=== PATIENT | female | born 1960 | race Caucasian/White ===

== ENCOUNTER 2017-04-29 23:54 | Emergency (ER) | payer BC ==
[~2017-04-29] VITALS: Ht 152.4 cm; Wt 68.0 kg
[~2017-04-29 23:54] MED LIST: CIPROFLOXACIN500 M1 PO; PYRIDIUM200 MG PO; SYNTHROID25 MCG PO
[2017-04-30] MEDS ORDERED: HYDROCODONE-AP1 EAC6 PO (02:10)
[2017-04-30 02:34] VITALS: BP 155/99
[2017-05-04] MEDS ORDERED: ALEVE220 MG PO (18:55)
[2017-05-04] MEDS ORDERED: PERCOCET PO (18:55)
== END 2017-04-30 02:38 | disposition home or self-care (01) ==
LOC: M.ERS 23:54
DX: S52.592A Other fractures of lower end of left radius, initial encounter for closed fracture (principal); E03.9 Hypothyroidism, unspecified; Z88.1 Allergy status to other antibiotic agents; W00.0XXA Fall on same level due to ice and snow, initial encounter; Y93.89 Activity, other specified; Y92.89 Other specified places as the place of occurrence of the external cause; Y99.8 Other external cause status

== ENCOUNTER → 2017-05-05 | Day surgery (SDC) | payer BC ==
[~2017-05-05] MED LIST changes: +ALEVE220 MG PO; +HYDROCODONE-AP1 EAC6 PO; +PERCOCET PO
[2017-05-05 13:09] LABS: HEMATOCRIT 36.2 % (37.0-47.0); HEMOGLOBIN 12.4 gm/dL (12.0-15.0); MCH 29.5 pg (26.0-34.0); MCHC 34.3 g/dL (28.0-37.0); MCV 86.1 fL (80.0-100.0); RBC 4.2 mil/uL (4.20-5.00); WBC 6.7 thou/uL (4.0-11.0)
--- NOTE | 2017-05-24 10:57 | OP ---
[address] [address] OPERATIVE REPORT Name: JOSE CARLOS CONNOR Room: [facility]#: [id number] Admission: 05/05/17 Attend Phys: Justice Glez II Discharge: Date of : 64 Report #: [id number] THIS REPORT FOR: //name// CC: Justice Loya DATE OF SERVICE: 05/05/2017 PREOPERATIVE DIAGNOSIS: Right distal radius fracture, greater than 3 parts. POSTOPERATIVE DIAGNOSIS: Right distal radius fracture, greater than 3 parts. PROCEDURE: ORIF, distal radius fracture, greater than 3 parts. SURGEON: DO SHE Mcghee II ASSISTANT: MAXIMILIAN Scales ANESTHESIA: Per operative record. ESTIMATED BLOOD LOSS: Minimal. ANTIBIOTICS: Per operative record. DRAINS: None. COMPLICATIONS: None. CONDITION: The patient stable to recovery room. IMPLANTS: [place] distal radius plate and associated screws. OPERATIVE PROCEDURE: The patient was taken to operative suite and placed supine on the operating table and given appropriate anesthesia. The patient had a well-padded tourniquet applied to the upper and inflated to 250 mmHg for the duration of the procedure. After Esmarch exsanguination, surgery began by sterile prep and drape and the midline incision over the flexor carpi radialis tendon, the skin and subcutaneous tissues. The fracture was found. The pronator was reflected off of this fracture area. It was then reduced in near anatomic fashion, held with K wires across the plate, checked with C-arm, both AP and lateral direction, to be in excellent plate position, excellent depth of the fracture. The screw holes were then filled utilizing locking screws and nonlocking screws in appropriate fashion. Final irrigation was performed in the wound. Final images were taken with C-arm. The wound was then closed utilizing a 2-0 Vicryl and running Monocryl stitch. Dermabond [place] [address] OPERATIVE REPORT Name: NIKOLASJOSE CARLOS Dylon Room: [facility].#: [id number] Admission: 05/05/17 Attend Phys: Justice Glez II Discharge: Date of : 64 Report #: [id number] patient transferred to recovery in stable condition. Counts were correct throughout the procedure. <ELECTRONICALLY SIGNED> By: Justice Glez II, DO 05/24/17 1057 1055 [id number] Glez II DO /nt
== END | disposition home or self-care (01) ==
LOC: M.SUR 08:25
PROVIDERS: Orthopaedic Surgery
DX: S52.571A Other intraarticular fracture of lower end of right radius, initial encounter for closed fracture (principal); Z88.8 Allergy status to other drugs, medicaments and biological substances; Z79.891 Long term (current) use of opiate analgesic

== ENCOUNTER 2018-08-14 19:58 | Inpatient (IN) | payer BC ==
[~2018-08-14] VITALS: Ht 152.4 cm; Wt 72.6 kg
--- NOTE | ~2018-08-14 | CON ---
[address] [address] CONSULTATION Name: JOSE CARLOS HU Room: [address] IN M.R.#: [id number] Admission: 08/15/18 Attend Phys: Ayla Chilel MD Discharge: Date of : 64 Report #: [id number] THIS REPORT FOR: //name// CC: Ayla Padilla HISTORY OF PRESENT ILLNESS: A pleasant 57-year-old female with past medical history for hypothyroidism, who is presenting for evaluation of abdominal pain. The patient reports sudden onset of abdominal pain located in the upper abdomen extending to the right and left upper quadrant 2 days back. The pain was associated with abdominal distention, bloating, nausea. The patient denied any vomiting. The patient reports prior to that she had not had any bowel movement for 2 days. She denies any hematemesis or hematochezia and denies similar episodes of abdominal pain in the past. PAST SURGICAL HISTORY: The patient has a history of hysterectomy, uterine ablation, laparoscopy for endometriosis, and left wrist surgery. SOCIAL HISTORY: The patient denies smoking, alcohol or recreational drug use. FAMILY HISTORY: There is no significant family history of colon cancer or Dum[place]-related neoplasia. REVIEW OF SYSTEMS: Comprehensive 10-point review of systems is negative except for what was mentioned in the HPI. PHYSICAL EXAMINATION: VITAL SIGNS: Temperature 36.6, pulse rate 68, respirations 16, and blood pressure 124/76. GENERAL: The patient is alert, awake, oriented x 3. HEENT: Pupils are equal, round, reactive to light and accommodation. Mucous membranes are moist. There is no congestion. LUNGS: Clear to auscultation bilaterally. CARDIOVASCULAR: Rate and rhythm regular. S1, S2 present. ABDOMEN: Soft. There is no significant distention, guarding or rigidity. EXTREMITIES: Warm and well perfused. There is no edema. LABORATORY DATA: Hemoglobin 13.5, hematocrit 39.8, platelet count 233, and WBC count 9.3. Sodium 145, potassium 4.0, chloride 110, bicarbonate 30, BUN 7, and creatinine 0.7. Total bilirubin 0.4, AST 14, ALT 18, and alkaline phosphatase 73. INR 1. IMAGING: Abdomen and pelvis CT performed on admission on the , this demonstrates mildly dilated central small bowel loops with normal caliber loops proximal and distal to the region. A transition zone is not identified, but findings are worrisome for mild partial small-bowel obstruction. Circumferential thickening of the vaginal [place] [address] CONSULTATION Name: JOSE CARLOS HU Room: [address] IN [facility]#: [id number] Admission: 08/15/18 Attend Phys: Ayla Chilel MD Discharge: Date of : 64 Report #: [id number] abdomen series from yesterday, this demonstrates a nonobstructive bowel gas pattern with large amount of stool seen throughout the colon. No free air. ASSESSMENT AND PLAN: A pleasant 57-year-old female with history of hypothyroidism, presenting with abdominal pain and distention. CT on presentation demonstrated presence of partial small-bowel obstruction, but subsequent acute abdominal series demonstrated normal bowel pattern. The patient is able to pass both gas and bowel movements at this time. She has never had an EGD before and we would like to do an EGD to rule out any mucosal disease. Thank you for this consultation. Please do not hesitate to call or contact us with any questions. By: [id number] Starks MD /nt
[~2018-08-14 19:58] MED LIST changes: +SYNTHROID25 MC1 PO; -SYNTHROID25 MCG PO
[2018-08-14 20:09] VITALS: BP 143/95
[2018-08-14 22:35] LABS: ABSOLUTE BASOPHILS 0.1 thou/uL (0.0-0.2); ABSOLUTE EOSINOPHILS 0.2 thou/uL (0.0-0.7); ABSOLUTE LYMPHOCYTES 2.6 thou/uL (0.8-5.3); ABSOLUTE MONOCYTES 0.8 thou/uL (0.0-1.2); ABSOLUTE NEUTROPHILS 8.5 thou/uL (1.6-8.1); BASOPHILS 0.8 %; EOSINOPHILS 1.3 %; HEMATOCRIT 41.2 % (37.0-47.0); HEMOGLOBIN 13.7 gm/dL (12.0-15.0); LYMPHOCYTES 21.4 %; MCHC 33.2 g/dL (28.0-37.0); MCV 87.4 fL (80.0-100.0); MONOCYTES 6.9 %; MPV 8.6 fl. (7.2-11.1); NUCLEATED RBCS 0 /100WBC; PLATELET COUNT* 243 thou/uL (150-400); POLYS 69.6 %; RBC 4.72 mil/uL (4.20-5.00); RDW-CV 13.6 % (10.5-14.5); WBC 12.2 thou/uL (4.0-11.0)
[2018-08-14 22:41] LABS: ANION GAP 6 mmol/L (7-16); BUN 14 mg/dL (7-18); CALCIUM 8.4 mg/dL (8.5-10.1); CHLORIDE 104 mmol/L (98-107); CO2 31 mmol/L (21-32); CREATININE 0.8 mg/dL (0.6-1.3); GLUCOSE 111 mg/dL (70-99); POTASSIUM 3.9 mmol/L (3.5-5.1); SODIUM 141 mmol/L (136-145)
[2018-08-14 22:50] LABS: ALBUMIN 3.8 g/dL (3.4-5.0); ALKALINE PHOSPHATASE 87 U/L (46-116); LIPASE 132 U/L (73-393); SGOT 15 U/L (15-37); SGPT 22 U/L (30-65); TOTAL BILIRUBIN 0.3 mg/dL (<0.1-1.0); TOTAL PROTEIN 7.5 g/dL (6.4-8.2); TROPONIN-I LEVEL <0.06 ng/mL (<0.06)
[2018-08-14 22:59] LABS: URINE BILIRUBIN NEGATIVE (Negative); URINE BLOOD NEGATIVE (Negative); URINE CLARITY CLEAR; URINE COLOR YELLOW; URINE GLUCOSE-RANDOM NEGATIVE (Negative); URINE KETONES NEGATIVE (Negative); URINE LEUKOCYTES-REFLEX TRACE (Negative); URINE NITRITE-REFLEX NEGATIVE (Negative); URINE PROTEIN NEGATIVE (Negative); URINE UROBILINOGEN 0.2 E.U./dl (0.2-1.0)
[2018-08-14 23:27] LABS: CASTS None Seen /LPF (None Seen); MUCUS 0-3 Light strn/LPF (None Seen); SQUAMOUS 0-3 Few /LPF (0-3); URINE RBC None Seen /HPF (0-2); URINE WBC-REFLEX 0-5 Rare /HPF (0-5)
[2018-08-14 23:28] LABS: BACTERIA-REFLEX 1-9 Few /HPF (None Seen); CRYSTALS None Seen /LPF (None Seen)
[2018-08-15 01:10] LABS: APTT 28.9 Seconds (25.0-31.3); PROTIME 9.9 Seconds (9.20-11.50)
--- NOTE | 2018-08-15 01:23 | NUR ---
PATIENT REFUSED NG TUBE PLACEMENT. DENIES NAUSEA, VOMITING AT THIS TIME.
[2018-08-15 04:06] VITALS: BP 116/70
[2018-08-15 09:00] VITALS: BP 109/66
--- NOTE | 2018-08-15 10:12 | NUR ---
PT ARRIVED TO UNIT FROM ER AROUND 0900. PT STABLE. VITALS CHARTED. IV PATENT, INFUSING. UP AD LETY. NPO FOR POSSIBLE PROCEDURE. DENIED NG TUBE CURRENTLY. CALL LIGHT WITHIN REACH. WILL CONTINUE TO MONITOR.
--- NOTE | 2018-08-15 15:42 | EKG ---
[place] [address] ELECTROCARDIOGRAM REPORT Name: JOSE CARLOS HU Room: [address] ADM IN M.R.#: [id number] Admission: 08/15/18 Attend Phys: Ayla Chilel MD Discharge: Date of : 64 Report #: [id number] THIS REPORT FOR: //name// [facility] ED Test Date: 2018-08-14 Test Time: 22:34:55 Pat Name: JOSE CARLOS HU Department: Room: [facility] Gender: F [place]: [place] : 1960 Requested By: Georgia Hicks Order Number: [id number] MD: Jai Del Rosario Measurements Intervals [place] Rate: 75 P: 42 VA: 138 QRS: 64 QRSD: 89 T: 43 QT: 393 QTc: 439 Interpretive Statements Sinus rhythm Baseline wander in lead(s) I,II,III,aVR,aVL No previous ECG available for comparison Electronically Signed On 08-15-2018 15:42:07 CDT by Jai Del Rosario [email or web address] <ELECTRONICALLY SIGNED> By: Jai Del Rosario MD, [facility] 08/15/18 1542 [id number] Jai Del Rosario MD, [facility] /EPI
--- NOTE | 2018-08-15 18:49 | NUR ---
PT A&Ox4. VITALS STABLE. IV PATENT, INFUSING. REMAINS NPO. DR. COOKIE GORDON FOR POSSIBLE DIET. UP AD LETY. ON RA. DENIED PAIN. CALL LIGHT WITHIN REACH. WILL CONTINUE TO MONITOR.
[2018-08-15 20:30] VITALS: BP 116/77
[2018-08-16 01:15] LABS: ABSOLUTE EOSINOPHILS 0.2 thou/uL (0.0-0.7); ABSOLUTE LYMPHOCYTES 2.8 thou/uL (0.8-5.3); ABSOLUTE MONOCYTES 0.4 thou/uL (0.0-1.2); ABSOLUTE NEUTROPHILS 3.1 thou/uL (1.6-8.1); BASOPHILS 0.5 %; EOSINOPHILS 2.9 %; HEMATOCRIT 35.8 % (37.0-47.0); HEMOGLOBIN 12.1 gm/dL (12.0-15.0); LYMPHOCYTES 42.4 %; MCH 29.3 pg (26.0-34.0); MCHC 33.7 g/dL (28.0-37.0); MCV 86.9 fL (80.0-100.0); MONOCYTES 6.6 %; NUCLEATED RBCS 0 /100WBC; PLATELET COUNT* 201 thou/uL (150-400); POLYS 47.6 %; RBC 4.12 mil/uL (4.20-5.00); RDW-CV 13.6 % (10.5-14.5); WBC 6.5 thou/uL (4.0-11.0)
[2018-08-16 01:33] LABS: ALBUMIN 3.1 g/dL (3.4-5.0); CREATININE 0.7 mg/dL (0.6-1.3); TOTAL BILIRUBIN 0.4 mg/dL (<0.1-1.0); TOTAL PROTEIN 6.2 g/dL (6.4-8.2)
--- NOTE | 2018-08-16 07:10 | NUR ---
PATIENT HAS SLEPT WELL THROUGHOUT THE NIGHT. VSS ON RA. NO C/O PAIN. NEW IV INSERTED IN RIGHT HAND- NS @ 100ML/HR. PATIENT TRANSFERRED TO ROOM 309 THIS AM WITH ALL BELONGINGS. REPORT GIVEN TO NIGHT NURSE LUCIANO. NURSING TO CONTINUE MONITORING.
[2018-08-16 07:50] VITALS: BP 133/76
[2018-08-16 16:32] VITALS: BP 113/67
--- NOTE | 2018-08-16 17:00 | NUR ---
PATIENT UP AD LETY IN ROOM WITHOUT DIFFICULTY. PATIENT C/O BLOATING/DISTENTION OF ABD AFTER FULL LIQUID BREAKFAST. DR. CHENEY WAS NOTIFIED AND ORDERS FOR SCHED REGLAN AND SENNA, MEDICATIONS GIVEN ORDERED. PATIENT STATED SHE HAD 2 SMALL LIQUID BM'S THIS AFTERNOON. PATIENT ENCOURAGED TO AMBULATE IN HALLS. DR. CHENEY NOTIFIED OF KUB RESULTS THIS AM.
[2018-08-16 20:16] VITALS: BP 123/94
--- NOTE | 2018-08-17 06:39 | NUR ---
PATIENT SLEPT PART OF THE NIGHT. IV FLUIDS CONTINUE TO INFUSE ORDERED. PATIENT HAD NO COMPLAINTS OF PAIN OR NAUSEA. PATIENT STATES SHE HAD A LITTLE BIT OF LIQUID STOOL BUT NOTHING SUBSTANTIAL. REGLAN AND SENNA WERE GIVEN ORDERED. WILL CONTINUE TO MONITOR.
[2018-08-17 07:35] VITALS: BP 124/76
[2018-08-17 15:24] LABS: HEMATOCRIT 39.8 % (37.0-47.0); HEMOGLOBIN 13.5 gm/dL (12.0-15.0); MCH 29.1 pg (26.0-34.0); MCHC 33.8 g/dL (28.0-37.0); MCV 85.9 fL (80.0-100.0); MPV 8.7 fl. (7.2-11.1); RBC 4.64 mil/uL (4.20-5.00); RDW-CV 13.4 % (10.5-14.5); WBC 9.3 thou/uL (4.0-11.0)
--- NOTE | 2018-08-17 15:27 | NUR ---
SW met with pt to complete initial assessment, introduce self, and SW role. Pt lives at home with her . Pt is independent in ADLs, mobility. Pt does not anticipate any dc needs at this time.
[2018-08-17 16:00] VITALS: BP 121/78
--- NOTE | 2018-08-17 19:39 | NUR ---
PATIENT RESTING IN BED. PATIENT IS UP AD LETY AND HAS WALKED IN HALLS. PATIENT HAD LIQUID STOOL WITH EMEMA. PATIENT HAS NOT HAD RESULTS FROM MAG CITRATE AT THIS TIME. PATIENT HAS FAIR APPETITE. PATIENT WILL BE NPO AFTER MIDNIGHT FOR EGD SCHEDULED TOMORROW. PATIENT DENIES ANY PAIN. PATIENT DENIES ANY NEEDS AT THIS TIME. CALL LIGHT WITHIN REACH. WILL CONTINUE TO MONITOR.
[2018-08-17 20:14] VITALS: BP 133/72
--- NOTE | 2018-08-18 05:05 | NUR ---
PT SLEPT MOST OF SHIFT. ASSESSMENT DOCUMENTED. NO REPORTS OF PAIN OR NAUSEA. IV PATENT. PT NPO AFTER 0000. WILL CONTINUE WITH PLAN OF CARE.
[2018-08-18 07:50] VITALS: BP 109/66
[2018-08-18 10:17] VITALS: BP 109/66
[2018-08-18 11:08] VITALS: BP 131/69
[2018-08-18] MEDS ORDERED: SENNA8.6 MG PO (12:21)
[2018-08-18 13:05] VITALS: BP 131/69
[2018-08-18] MEDS ORDERED: FLAGYL500 M1 PO (13:10)
--- NOTE | 2018-08-18 14:05 | NUR ---
PATIENT DISCHARGED TO HOME. DISCHARGE PAPERS REVIEWED AND SIGNED. PRESCRIPTIONS AND INFORMATION SHEETS GIVEN. IV REMOVED. PATIENT DENIES ANY FURTHER NEEDS. PATIENT TAKEN AMBULATORY TO EXIT. LEFT WITH .
== END 2018-08-18 14:05 | disposition home or self-care (01) | DRG 390 ==
LOC: M.ERS 19:58 → M.ORTHSURG 08-15 00:26 → M.TBA-ER 08-15 00:26 → M.ORTHSURG 08-15 08:22 → M.3W 08-16 06:33
PROVIDERS: Family Medicine; Internal Medicine Gastroenterology; Nurse Practitioner Family; Physician Assistant; ADMIT Internal Medicine
PROC: 0DB98ZX Excision of Duodenum, Via Natural or Artificial Opening Endoscopic, Diagnostic (ICD-10-PCS; principal; 2018-08-18)
DX: K56.600 Partial intestinal obstruction, unspecified as to cause (principal); E03.9 Hypothyroidism, unspecified; K59.00 Constipation, unspecified; K44.9 Diaphragmatic hernia without obstruction or gangrene; Z90.710 Acquired absence of both cervix and uterus; Z88.6 Allergy status to analgesic agent; Z88.1 Allergy status to other antibiotic agents; Z91.041 Radiographic dye allergy status; Z79.899 Other long term (current) drug therapy

== ENCOUNTER 2018-09-25 17:45 | Emergency (ER) | payer OTHER ==
[~2018-09-25] VITALS: Ht 152.4 cm; Wt 72.6 kg
[~2018-09-25 17:45] MED LIST changes: +FLAGYL500 M1 PO; +SENNA8.6 MG PO
[2018-09-25] MEDS ORDERED: IBUPROFEN 800800 M1 PO (19:39)
[2018-09-25] MEDS ORDERED: PERCOCET PO (19:39)
[2018-09-25 20:11] VITALS: BP 142/83
== END 2018-09-25 20:12 | disposition home or self-care (01) ==
LOC: M.ERS 17:45
DX: S62.614A Displaced fracture of proximal phalanx of right ring finger, initial encounter for closed fracture (principal); S62.616A Displaced fracture of proximal phalanx of right little finger, initial encounter for closed fracture; E03.9 Hypothyroidism, unspecified; Z98.890 Other specified postprocedural states; Z90.710 Acquired absence of both cervix and uterus; Z88.5 Allergy status to narcotic agent; Z91.041 Radiographic dye allergy status; Z88.1 Allergy status to other antibiotic agents; W01.0XXA Fall on same level from slipping, tripping and stumbling without subsequent striking against object, initial encounter; Y93.89 Activity, other specified; Y92.481 Parking lot as the place of occurrence of the external cause; Y99.8 Other external cause status

== ENCOUNTER 2020-04-07 12:14 | Emergency (ER) | payer OTHER ==
[~2020-04-07] VITALS: Ht 154.9 cm; Wt 63.5 kg
[~2020-04-07 12:14] MED LIST changes: +IBUPROFEN 800800 M1 PO
[2020-04-07 12:50] LABS: URINE BILIRUBIN NEGATIVE (Negative); URINE BLOOD NEGATIVE (Negative); URINE CLARITY CLEAR; URINE COLOR YELLOW; URINE GLUCOSE-RANDOM NEGATIVE (Negative); URINE KETONES NEGATIVE (Negative); URINE LEUKOCYTES-REFLEX NEGATIVE (Negative); URINE NITRITE-REFLEX NEGATIVE (Negative); URINE PROTEIN NEGATIVE (Negative)
[2020-04-07 13:11] LABS: ABSOLUTE EOSINOPHILS 0.2 thou/uL (0.0-0.7); ABSOLUTE LYMPHOCYTES 2.3 thou/uL (0.8-5.3); ABSOLUTE MONOCYTES 0.7 thou/uL (0.0-1.2); ABSOLUTE NEUTROPHILS 7.3 thou/uL (1.6-8.1); BASOPHILS 0.4 %; EOSINOPHILS 1.6 %; HEMATOCRIT 41.6 % (37.0-47.0); HEMOGLOBIN 13.7 gm/dL (12.0-15.0); MCH 28.3 pg (26.0-34.0); MCV 85.9 fL (80.0-100.0); MONOCYTES 6.7 %; MPV 8.2 fl. (7.2-11.1); NUCLEATED RBCS 0 /100WBC; PLATELET COUNT* 234 thou/uL (150-400); POLYS 69.3 %; RBC 4.84 mil/uL (4.20-5.00); RDW-CV 14.3 % (10.5-14.5); WBC 10.6 thou/uL (4.0-11.0)
[2020-04-07 13:18] LABS: CALCIUM 8.8 mg/dL (8.5-10.1); CREATININE 0.7 mg/dL (0.6-1.3)
[2020-04-07 13:22] LABS: ALBUMIN 3.8 g/dL (3.4-5.0); TOTAL BILIRUBIN 0.5 mg/dL (<0.1-1.0); TOTAL PROTEIN 7.5 g/dL (6.4-8.2)
[2020-04-07] MEDS ORDERED: BENTYL 10 MG CA10 M1 PO (15:25)
[2020-04-07] MEDS ORDERED: ZOFRAN ODT4 MG PO (15:25)
--- NOTE | 2020-04-07 15:28 | EKG ---
[place] [address] ELECTROCARDIOGRAM REPORT Name: JOSE CARLOS HU Room: [facility]#: [id number] Admission: 04/07/20 Attend Phys: Discharge: Date of : 64 Date of Service: 04/07/20 1315 Report #: [id number] THIS REPORT FOR: //name// [facility] ED Test Date: 2020-04-07 Test Time: 13:15:06 Pat Name: JOSE CARLOS HU Department: Room: Gender: District [employer] Agent: [facility] : 1960 Requested By: Noreen Mayorga Order Number: [id number] MD: Ervin Steinberg Measurements Intervals [place] Rate: 71 P: 52 FL: 155 QRS: 36 QRSD: 90 T: 18 QT: 405 QTc: 441 Interpretive Statements Sinus rhythm Low voltage, precordial leads Borderline T abnormalities, anterior leads Compared to ECG 08/14/2018 22:34:55 Low QRS voltage now present T-wave abnormality now present Electronically Signed On 04-07-2020 15:28:19 SOAP DRIER TENDER by Ervin Steinberg [email or web address] <ELECTRONICALLY SIGNED> By: Ervin Steinberg MD, [facility] 04/07/20 1528 1315 1315 Ervin Steinberg MD, [facility] /EPI
[2020-04-07 15:47] VITALS: BP 120/68
== END 2020-04-07 15:48 | disposition home or self-care (01) ==
LOC: M.ERS 12:14
PROVIDERS: Nurse Practitioner Family
DX: R10.13 Epigastric pain (principal); E03.9 Hypothyroidism, unspecified; Z88.5 Allergy status to narcotic agent; Z91.041 Radiographic dye allergy status; Z98.890 Other specified postprocedural states; Z90.710 Acquired absence of both cervix and uterus